=== PATIENT | male | born 1980 | race Caucasian/White ===

== ENCOUNTER 2018-07-04 10:24 | Emergency (ER) | payer OTHER, MEDICAID ==
[~2018-07-04] VITALS: Ht 177.8 cm; Wt 136.1 kg
--- NOTE | ~2018-07-04 | EKG ---
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
[~2018-07-04 10:24] MED LIST: LABETALOL HCL100 MG PO; NORVASC10 MG PO; PRINIVIL10 MG PO; SENNA LAX8.6 M1 PO
[2018-07-04] MEDS ORDERED: ZESTORETIC 20-1 EACH PO (10:30)
[2018-07-04] MEDS ORDERED: LISINOPRIL30 MG PO (10:30)
[2018-07-04] MEDS ORDERED: LABETALOL HCL300 MG PO (10:30)
[2018-07-04] MEDS ORDERED: AMLODIPINE BESY10 MG PO (10:31)
[2018-07-04 11:08] LABS: BASO # 0.1 10*3/uL (0.0-0.1); BASO % 0.6 % (0.0-1.0); EOS # 0.2 10*3/uL (0.0-0.4); EOS % 2.9 % (1.0-4.0); HEMATOCRIT 45.8 % (42.0-52.0); HEMOGLOBIN 15.1 g/dl (14.0-18.0); LYMPH # 1.7 10*3/uL (1.3-4.4); LYMPH % 21.1 % (27.0-41.0); MEAN CELL VOLUME 85.9 fl (80.0-94.0); MEAN CORPUSCULAR HGB 28.3 pg (27.0-31.0); MONO # 0.6 10*3/uL (0.1-1.0); NEUT # 5.3 10*3/uL (2.3-7.9); PLATELET COUNT AUTOMATED 193 10*3/uL (130-400); RED BLOOD COUNT 5.33 10*6/uL (4.50-5.90); RED CELL DISTRI WIDTH 13.2 % (0-14.5); WHITE BLOOD COUNT 7.8 10*3/uL (4.8-10.8)
[2018-07-04 11:16] LABS: ACT PARTIAL THROMBO TIME 23.4 SECONDS (20.8-31.5)
[2018-07-04 11:30] LABS: ALBUMIN 3.4 gm/dl (3.1-4.5); ALKALINE PHOSPHATASE 54 U/L (45-117); BUN 15 mg/dl (7-24); CHLORIDE 105 mmol/L (98-107); CREATININE 0.92 mg/dL (0.70-1.30); POTASSIUM 4.3 mmol/L (3.5-5.1); SGOT/AST 23 IU/L (3-35); SGPT/ALT 39 U/L (12-78); SODIUM 141 mmol/L (136-145); TOTAL PROTEIN 7.2 gm/dL (6.4-8.2)
[2018-07-04 11:36] LABS: TROPONIN I < 0.015 ng/ml (<0.045)
[2018-07-04 12:33] VITALS: BP 148/78
[2018-08-09] MEDS ORDERED: LABETALOL PO (08:17)
[2018-08-09] MEDS ORDERED: HYDROCHLOROTHIA50 M1 PO (08:18)
[2018-08-09] MEDS ORDERED: LISINOPRIL40 MG PO (08:18)
[2018-08-09] MEDS ORDERED: ZOLOFT50 MG PO (08:19)
[2018-08-09] MEDS ORDERED: BUSPAR PO (08:19)
[2018-08-09] MEDS ORDERED: ZYRTEC10 M3 PO (08:19)
[2018-08-10] MEDS ORDERED: ANUCORT-HC25 MG R (08:48)
== END 2018-07-04 13:05 | disposition left against medical advice (07) ==
LOC: ED 10:24
PROVIDERS: Nurse Practitioner Family
DX: I16.1 Hypertensive emergency (principal); Z79.899 Other long term (current) drug therapy; Z86.73 Personal history of transient ischemic attack (TIA), and cerebral infarction without residual deficits